=== PATIENT | male | born 1975 | race American Indian/Alaskan Native ===

== ENCOUNTER 2017-07-19 02:18 | Emergency (ER) | payer SELFPAY ==
--- NOTE | 2017-07-19 02:42 | ED PDOC ---
Arrival/HPI - General Chief Complaint: Alcohol Ingestion Time Seen by Provider: 07/19/17 02:35 Historian: Patient - History of Present Illness Narrative History of Present Illness (Text): 07/19/17 02:35 Quoc Ortiz is a 41 year old male bought in by ems, who presents to the emergency department for alcohol intoxication. Patient's called EMS after finding patient intoxicated at home. Patient has no other complaints at this time. Time/Duration: 1-3 hours Symptom Onset: Gradual Symptom Course: Unchanged Context: Home Past Medical History - Provider Review Nursing Documentation Reviewed: Yes - Psychiatric Hx Substance Use: Yes (weed) Family/Social History - Physician Review Nursing Documentation Reviewed: Yes Family/Social History: No Known Family HX Smoking Status: Heavy Smoker > 10 Cigarettes Daily Hx Alcohol Use: Yes Frequency of alcohol use: Socially Hx Substance Use: Yes (weed) Substance used: 1 yr Allergies/Home Meds Allergies/Adverse Reactions: Allergies No Known Allergies Allergy (Verified 07/19/17 02:27) Home Medications: Home Meds Medication Instructions Recorded Confirmed No Known Home Med 07/19/17 07/19/17 Review of Systems - Review of Systems Systems not reviewed;Unavailable: Intoxicated Physical Exam Vital Signs Reviewed: Yes Vital Signs Temp Pulse Resp BP Pulse Ox 07/19/17 04:18 97.7 F 68 16 122/70 100 07/19/17 02:33 97.8 F 80 18 127/83 96 Temperature: Afebrile Blood Pressure: Normal Pulse: Regular Respiratory Rate: Normal Appearance: Positive for: Other (intoxicated) Pain Distress: None - Systems Exam Head: Present: Atraumatic, Normocephalic Pupils: Present: PERRL Extroacular Muscles: Present: EOMI Conjunctiva: Present: Normal Mouth: Present: Moist Mucous Membranes Neck: Present: Normal Range of Motion Respiratory/Chest: Present: Clear to Auscultation, Good Air Exchange. No: Respiratory Distress, Accessory Muscle Use Cardiovascular: Present: Regular Rate and Rhythm, Normal S1, S2. No: Murmurs Abdomen: Present: Normal Bowel Sounds. No: Tenderness, Distention, Peritoneal Signs Back: Present: Normal Inspection Upper Extremity: Present: Normal Inspection. No: Cyanosis, Edema Lower Extremity: Present: Normal Inspection. No: Edema Skin: Present: Warm, Dry, Normal Color. No: Rashes Medical Decision Making ED Course and Treatment: 12/04/17 02:41 Impression: 41 year old male brought in by EMS presents with alcoholic intoxication tonight. Differential Diagnosis included but are not limited to: ETOH Plan: -- Reassess and disposition Progress Notes: 07/19/17 06:07 Pt. is awake alert,sober with steady gait in ER. - Lab Interpretations Lab Results: Lab Results 07/19/17 03:23: POC Glucose (mg/dL) 102 - Scribe Statement The provider has reviewed the documentation as recorded by the Yosvany Lechuga Provider Scribe Attestation: All medical record entries made by the Raviibe were at my direction and personally dictated by me. I have reviewed the chart and agree that the record accurately reflects my personal performance of the history, physical exam, medical decision making, and the department course for this patient. I have also personally directed, reviewed, and agree with the discharge instructions and disposition. Disposition/Present on Arrival - Present on Arrival Any Indicators Present on Arrival: No History of DVT/PE: No History of Uncontrolled Diabetes: No Urinary Catheter: No History of Decub. Ulcer: No History Surgical Site Infection Following: None - Disposition Have Diagnosis and Disposition been Completed?: Yes Diagnosis: Alcohol intoxication Disposition: HOME/ ROUTINE Disposition Time: 06:06 Patient Plan: Discharge Patient Problems: Current Active Problems Problem Status Onset Alcohol intoxication Acute Condition: STABLE Discharge Instructions (ExitCare): Alcohol Intoxication (ED) Additional Instructions: Avoid excessive alcohol drinking/follow up with your doctor Referrals: Alcoholics Anonymous [Outside] - Follow up with primary Forms: [employer] (Irish)
[2017-07-19 04:41] VITALS: O2SAT 100
[2017-07-19 06:13] VITALS: BP 124/82; PULSE 70; RESP 17; TEMP 98.7
== END 2017-07-19 06:13 | disposition home or self-care (01) ==
LOC: ED 02:18
DX: F10.129 Alcohol abuse with intoxication, unspecified (principal); Y90.9 Presence of alcohol in blood, level not specified